=== PATIENT | male | born 1940 | race Caucasian/White ===

== ENCOUNTER 2017-06-10 19:40 | Emergency (ER) | payer MEDICARE, BC ==
[2017-06-10] MEDS ORDERED: NS 0.9% 1000 ML* 2,000 ML IV ONE (22:41)
[2017-06-10] MEDS ORDERED: Acetaminophen TAB* 325 MG PO ONE (22:41)
[2017-06-10 23:22] LABS: Hematocrit 44 % (42-52); Mean Corpuscular HGB Conc 34 g/dl (31-36); Mean Corpuscular Hemoglobin 30 pg (27-31); Mean Corpuscular Volume 87 fL (80-94); Mean Platelet Volume 9 um3 (7.4-10.4); Red Blood Count 5.02 10^6/ul (4.0-5.4); Red Cell Distribution Width 14 % (10.5-15); White Blood Count 10.4 10^3/ul (3.5-10.8)
[2017-06-10 23:40] LABS: ALT 23 U/L (7-52); AST 14 U/L (13-39); Albumin 4.1 g/dL (3.2-5.2); Alkaline Phosphatase 53 U/L (34-104); Anion Gap 10 mmol/L (2-11); BUN/Creatinine Ratio 21.7 (8-20); Blood Urea Nitrogen 23 mg/dL (6-24); C Reactive Protein 117.59 mg/L (< 5.00); CO2 Carbon Dioxide 20 mmol/L (22-32); Calcium 9.3 mg/dL (8.6-10.3); Chloride 106 mmol/L (101-111); EGFR African American 87.8 (>60); EGFR Non-African American 68.3 (>60); Globulin 3.4 g/dL (2-4); Glucose 166 mg/dL (70-100); Lipase < 10 U/L (11.0-82.0); Sodium 136 mmol/L (133-145); Total Protein 7.5 g/dL (6.4-8.9)
[2017-06-11] MEDS ORDERED: Meropenem 1 GM PREMIX(*) 1 GM/50 ML BAG IV ONE (01:19)
--- NOTE | 2017-06-11 04:33 | ED ---
Bessie Gamboa Alfonso, scribed for Benitez Knapp MD on 06/11/17 at 0118 . HPI Febrile Illness - HPI Summary HPI Summary: This patient is a 76 year old M presenting to [facility] accompanied by with a chief complaint of febrile illness since 4 days ago. He reports a 103.1 rectal temperature taken earlier today. The patient rates the pain 0/10 in severity. Symptoms aggravated by nothing. Symptoms alleviated by nothing. Patient reports body aches, and low back pain. Patient denies rhinorrhea, sore throat, SOB, right hip pain, rashes, and calf swelling. He is currently on doxycycline, and Dr. Lemus (PCP) recommends a Carbapenem. 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 PSHx right hip replacement (one year ago). - History of Current Complaint Chief Complaint: EDFever Time Seen by Provider: 06/10/17 22:27 Hx Obtained From: Patient Onset/Duration: Started Days Ago - 4 Timing: Constant Pain Intensity: 0 Pain Scale Used: 0-10 Numeric Aggravating Factors: Nothing Alleviating Factors: Nothing Associated Signs and Symptoms: Other: - body aches, and low back pain. Patient denies rhinorrhea, sore throat, SOB, right hip pain, rashes, and calf swelling - Allergy/Home Medications Allergies/Adverse Reactions: Allergies Allergy/AdvReac Type Severity Reaction Status Date / Time Iodine Allergy Intermediate Airway Verified 06/10/17 19:53 Obstruction Latex Allergy Unknown See Comment Verified 06/10/17 19:53 Bacitracin Allergy Unknown Verified 06/10/17 19:53 Reaction Details adhesive tape Allergy Mild Itching Uncoded 06/10/17 19:53 iv contrast dye Allergy Itching/gag Uncoded 06/10/17 19:53 ging PMH/Surg Hx/FS Hx/Imm Hx Endocrine/Hematology History: Denies: Hx Anticoagulant Therapy, Hx Blood Disorders, Hx Blood Transfusions, Hx Bone Marrow Disease, Hx Diabetes, Hx Systemic Lupus Erythematosus, Hx Sickle Cell Disease, Hx Thyroid Disease, Hx Anemia, Hx Unexplained Bleeding, Other Endocrine/Hematological Disorders Cardiovascular History: Denies: Hx Congestive Heart Failure, Hx Hypertension Comment Only: Other Cardiovascular Problems/Disorders - DENIES Respiratory History: Denies: Hx Asthma, Hx Chronic Obstructive Pulmonary Disease (COPD), Other Respiratory Problems/Disorders - DENIES GI History: Reports: Hx Gastroesophageal Reflux Disease, Other GI Disorders - POLYPS FOUND BY COLONOSCOPY, BOWEL OBSTRUCTION Denies: Hx Ulcer History: Reports: Hx Renal Disease - hx of hydronephrosis, Other Problems/ Disorders - congenital defect, multiple Surgeries, chronic e-coli infections KIDNEYS Denies: Hx Dialysis Musculoskeletal History: Reports: Hx Arthritis Denies: Hx Rheumatoid Arthritis, Hx Osteoporosis Sensory History: Reports: Hx Contacts or Glasses Denies: Hx Cataracts, Hx Eye Injury, Hx Eye Prosthesis, Hx Glaucoma, Hx Macular Degeneration, Hx Vision Problem, Hx Deafness, Hx Hearing Aid, Hx Hearing Problem, Other Sensory Impairments Opthamlomology History: Reports: Hx Contacts or Glasses Denies: Hx Cataracts, Hx Eye Injury, Hx Eye Prosthesis, Hx Glaucoma, Hx Macular Degeneration, Hx Vision Problem, Other Sensory Impairments Psychiatric History: Denies: Hx Anxiety, Hx Attention Deficit Hyperactivity Disorder, Hx Eating Disorder, Hx Depression, Hx Panic Disorder, Hx Post Traumatic Stress Disorder, Hx Inpatient Treatment, Hx Community Mental Health Tx, Hx Schizophrenia, Hx Bipolar Disorder, Hx Suicide Attempt, Hx Substance Abuse, Other Psychiatric Issues/Disorders - Cancer History Cancer Type, 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 Hx Chemotherapy: No Hx Radiation Therapy: No - Surgical History Surgery Procedure, Year, and Place: bladder removed, KOCK placement, hernia repair, right hip prosthesis Hx Anesthesia Reactions: No Infectious Disease History: No Infectious Disease History: Reports: History Other Infectious Disease - HX OF E COLI, SCARLATINA, Denies: Hx Hepatitis, Hx Human Immunodeficiency Virus (HIV), Traveled Outside the [place] in Last 30 Days - Family History Known Family History: Negative: Cardiac Disease, Diabetes - Social History Alcohol Use: Rare Substance Use Type: Reports: None Smoking Status (MU): Never Smoked Tobacco Review of Systems Positive: Fever Negative: Sore Throat, Nasal Discharge Negative: Shortness Of Breath Positive: Myalgia, Other - low back pain; negative right hip pain and calf swelling Negative: Rash All Other Systems Reviewed And Are Negative: Yes Physical Exam - Summary Physical Exam Summary: General: mildly ill-appearing, no pain distress Skin: warm, color reflects adequate perfusion, dry, no rash. Head: normal Eyes: EOMI, MARITZA ENT: normal Neck: supple, nontender Respiratory: CTA, breath sounds present Cardiovascular: Tachycardia. Regular rate. Abdomen: soft, nontender Bowel: present Musculoskeletal: normal, strength/ROM intact Neurological: normal, sensory/motor intact, A&O x3 Psychological: affect/mood appropriate Triage Information Reviewed: Yes Vital Signs On Initial Exam: Initial Vitals Temp Pulse Resp BP Pulse Ox 101.8 F 108 18 133/88 96 06/10/17 19:46 06/10/17 19:46 06/10/17 19:46 06/10/17 19:46 06/10/17 19:46 Vital Signs Reviewed: Yes - Sandy Coma Scale Coma Scale Total: 15 Diagnostics - Vital Signs Vital Signs Temp Pulse Resp BP Pulse Ox 06/11/17 00:23 90 130/66 96 06/11/17 00:22 89 97 06/10/17 19:46 101.8 F 108 18 133/88 96 - Laboratory Lab Results: Lab Results 06/10/17 06/10/17 06/10/17 Range/Units 22:58 22:58 22:58 WBC (3.5-10.8) 10^3/ul RBC (4.0-5.4) 10^6/ul Hgb (14.0-18.0) g/dl Hct (42-52) % MCV (80-94) fL MCH (27-31) pg MCHC (31-36) g/dl RDW (10.5-15) % Plt Count (150-450) 10^3/ul MPV (7.4-10.4) um3 Neut % (Auto) (38-83) % Lymph % (Auto) (25-47) % Kings[place] % (Auto) (1-9) % Eos % (Auto) (0-6) % Baso % (Auto) (0-2) % Absolute Neuts (auto) (1.5-7.7) 10^3/ul Absolute Lymphs (auto) (1.0-4.8) 10^3/ul Absolute Monos (auto) (0-0.8) 10^3/ul Absolute Eos (auto) (0-0.6) 10^3/ul Absolute Basos (auto) (0-0.2) 10^3/ul Absolute Nucleated RBC 10^3/ul Nucleated RBC % INR (Anticoag Therapy) 1.04 (0.89-1.11) APTT 27.5 (26.0-36.3) seconds Sodium 136 (133-145) mmol/L Potassium 4.0 (3.5-5.0) mmol/L Chloride 106 (101-111) mmol/L Carbon Dioxide 20 L (22-32) mmol/L Anion Gap 10 (2-11) mmol/L BUN 23 (6-24) mg/dL Creatinine 1.06 (0.67-1.17) mg/dL Est GFR ( Amer) 87.8 (>60) Est GFR (Non-Af Amer) 68.3 (>60) BUN/Creatinine Ratio 21.7 H (8-20) Glucose 166 H (70-100) mg/dL Lactic Acid (0.5-2.0) mmol/L Calcium 9.3 (8.6-10.3) mg/dL Total Bilirubin 1.00 (0.2-1.0) mg/dL AST 14 (13-39) U/L ALT 23 (7-52) U/L Alkaline Phosphatase 53 (34-104) U/L C-Reactive Protein 117.59 H (< 5.00) mg/L B-Natriuretic Peptide 26 ( - 100) pg/mL Total Protein 7.5 (6.4-8.9) g/dL Albumin 4.1 (3.2-5.2) g/dL Globulin 3.4 (2-4) g/dL Albumin/Globulin Ratio 1.2 (1-3) Lipase < 10 L (11.0-82.0) U/L Influenza A (Rapid) (Negative) Influenza B (Rapid) (Negative) 06/10/17 06/10/17 06/10/17 Range/Units 22:58 22:58 23:25 WBC 10.4 (3.5-10.8) 10^3/ul RBC 5.02 (4.0-5.4) 10^6/ul Hgb 15.0 (14.0-18.0) g/dl Hct 44 (42-52) % MCV 87 (80-94) fL MCH 30 (27-31) pg MCHC 34 (31-36) g/dl RDW 14 (10.5-15) % Plt Count 177 (150-450) 10^3/ul MPV 9 (7.4-10.4) um3 Neut % (Auto) 84.0 H (38-83) % Lymph % (Auto) 7.1 L (25-47) % Kingsbury % (Auto) 8.6 (1-9) % Eos % (Auto) 0.1 (0-6) % Baso % (Auto) 0.2 (0-2) % Absolute Neuts (auto) 8.7 H (1.5-7.7) 10^3/ul Absolute Lymphs (auto) 0.7 L (1.0-4.8) 10^3/ul Absolute Monos (auto) 0.9 H (0-0.8) 10^3/ul Absolute Eos (auto) 0 (0-0.6) 10^3/ul Absolute Basos (auto) 0 (0-0.2) 10^3/ul Absolute Nucleated RBC 0.01 10^3/ul Nucleated RBC % 0.1 INR (Anticoag Therapy) (0.89-1.11) APTT (26.0-36.3) seconds Sodium (133-145) mmol/L Potassium (3.5-5.0) mmol/L Chloride (101-111) mmol/L Carbon Dioxide (22-32) mmol/L Anion Gap (2-11) mmol/L BUN (6-24) mg/dL Creatinine (0.67-1.17) mg/dL Est GFR ( Amer) (>60) Est GFR (Non-Af Amer) (>60) BUN/Creatinine Ratio (8-20) Glucose (70-100) mg/dL Lactic Acid 2.1 H* (0.5-2.0) mmol/L Calcium (8.6-10.3) mg/dL Total Bilirubin (0.2-1.0) mg/dL AST (13-39) U/L ALT (7-52) U/L Alkaline Phosphatase (34-104) U/L C-Reactive Protein (< 5.00) mg/L B-Natriuretic Peptide ( - 100) pg/mL Total Protein (6.4-8.9) g/dL Albumin (3.2-5.2) g/dL Globulin (2-4) g/dL Albumin/Globulin Ratio (1-3) Lipase (11.0-82.0) U/L Influenza A (Rapid) Negative (Negative) Influenza B (Rapid) Negative (Negative) Result Diagrams: 06/10/17 22:58 09/26/17 22:58 Lab Statement: Any lab studies that have been ordered have been reviewed, and results considered in the medical decision making process. - Radiology CXR Radiology Interpretation Completed By: ED Physician - LUNA - EKG 0016 Cardiac Rate: NL - BPM 90 EKG Rhythm: Sinus Rhythm Ectopy: None EKG Comparison: Other - 07/11/2012 new artifact in interior leads Re-Evaluation - Re-Evaluation First Eval Re-Evaluation Time: 01:11 Comment: Reviewed lab results. Course/Dx - Course Course Of Treatment: THE PATIENT'S FEVER PROTOCOL IS TO SEARCH FOR SOURCE OF INFECTION TO INCLUDE BLOOD CULTURES, GIVE A CARBAPENEM UNTIL CULTURES RETURN. GIVEN MERIPENEM AT 2AM IN THE ED. NEXT DOSE DUE AT 10AM. THE PLAN IS FOR THE PATIENT TO CONTACT DR YADAV, HIS PMD, THIS AM TO HELP ARRANGE OUT PATIENT INFUSION CLINIC DAILY DOSING OF ERTAPENEM 1 GRAM DAILY UNTIL CX RETURN. THEN TREAT BASES ON SX AND CULTURES. AT THIS TIME, PATIENT FEELS COMFORTABLE WITH THIS PLAN AND OUT PATIENT F/U WITH HIS DOCTOR. WE DISCUSSED ADMISSION; THE PATIENT DID NOT FEEL HE NEEDED ADMISSION AT THIS TIME. HE WILL RETURN IF WORSE. NO CRITICAL CARE TIME. - Diagnoses Provider Diagnoses: Fever Discharge - Discharge Plan Condition: Stable Disposition: HOME Patient Education Materials: Fever in Adults (ED) Referrals: stephanie Lemus [Other] - 3 Days (FAX: [phone]) Orlando Yadav MD [Primary Care Provider] - Additional Instructions: FOLLOW UP WITH YOUR DOCTOR. CALL DR YADAV THIS MORNING FOR FOLLOW UP. DISCUSS GETTING ERTAPENEM 1 GRAM DAILY WITH THE INFUSION CLINIC UNTIL YOUR BLOOD CULTURES ARE BACK. RETURN TO THE EMERGENCY DEPARTMENT FOR ANY WORSENING OF YOUR CONDITION; YOU FEEL ILL, CONTINUED OR WORSE FEVER OR QUESTIONS OR CONCERNS. The documentation as recorded by the Bessie haji Alfonso accurately reflects the service I personally performed and the decisions made by me, Benitez Knapp MD.
[2017-06-11 05:23] VITALS: BP 123/78
--- NOTE | 2017-06-11 07:38 | RAD ---
HISTORY: Fever COMPARISONS: December 12, 2014 VIEWS: 1: frontal portable view of the chest at 10:43 PM FINDINGS: LINES AND TUBES: None. CARDIOMEDIASTINAL SILHOUETTE: The cardiomediastinal silhouette is normal for portable technique. PLEURA: The costophrenic angles are sharp. No pleural abnormalities are noted. LUNG PARENCHYMA: The lungs are clear. ABDOMEN: The upper abdomen is clear. There is no subphrenic gas. BONES AND SOFT TISSUES: Degenerative changes are noted of the right shoulder IMPRESSION: NO ACTIVE CARDIOPULMONARY DISEASE.
== END 2017-06-11 05:24 | disposition home or self-care (01) ==
LOC: ED 19:40
DX: R50.9 Fever, unspecified (principal); M19.90 Unspecified osteoarthritis, unspecified site; K21.9 Gastro-esophageal reflux disease without esophagitis; Z93.2 Ileostomy status
CPT/HCPCS: 36415; 71010; 80053; 83605; 83690; 83880; 85025; 85610; 85730; 86140; 87040; 87502; 93005; 96360; 96374; 99284; A9270-GY; J2185

== ENCOUNTER 2018-11-18 19:33 | Inpatient (IN) | payer MEDICARE, BC ==
[2018-11-18] MEDS ORDERED: Acetaminophen TAB* 325 MG PO ONE (20:30)
[2018-11-18] MEDS ORDERED: NS 0.9% 1000 ML** 2,000 ML IV ONE (20:30)
--- NOTE | 2018-11-18 20:30 | ED ---
HPI Febrile Illness - HPI Summary HPI Summary: This patient is a 77 year old M presenting to [facility] accompanied by with a chief complaint of fever (max of 102.8 at 1800) that began yesterday at 2300. The patient rates the pain 0/10 in severity. Symptoms aggravated by nothing. Symptoms alleviated by nothing. Patient denies back pain. Patient states he has a history of bladder/ureteral issues and urosepsis. Patient states he does not kidney infections often, and had surgery on his ureters in 1986. - History of Current Complaint Chief Complaint: EDFever Time Seen by Provider: 11/18/18 20:14 Hx Obtained From: Patient Onset/Duration: Started Days Ago, Atraumatic, Still Present Timing: Constant Initial Severity: Mild Current Severity: Mild Pain Intensity: 0 Pain Scale Used: 0-10 Numeric Aggravating Factors: Nothing Alleviating Factors: Nothing Associated Signs and Symptoms: Other: - Negative back pain - Allergy/Home Medications Allergies/Adverse Reactions: Allergies Allergy/AdvReac Type Severity Reaction Status Date / Time MS Iodine [Iodine] Allergy Intermediate Airway Verified 11/18/18 19:46 Obstruction MS Latex [Latex] Allergy Unknown See Comment Verified 11/18/18 19:46 MS Bacitracin [Bacitracin] Allergy Unknown Verified 11/18/18 19:46 Reaction Details adhesive tape Allergy Mild Itching Uncoded 11/18/18 19:46 iv contrast dye Allergy Itching/gag Uncoded 11/18/18 19:46 ging PMH/Surg Hx/FS Hx/Imm Hx Previously Healthy: No Endocrine/Hematology History: Denies: Hx Anticoagulant Therapy, Hx Blood Disorders, Hx Blood Transfusions, Hx Bone Marrow Disease, Hx Diabetes, Hx Systemic Lupus Erythematosus, Hx Sickle Cell Disease, Hx Thyroid Disease, Hx Anemia, Hx Unexplained Bleeding, Other Endocrine/Hematological Disorders Cardiovascular History: Denies: Hx Congestive Heart Failure, Hx Hypertension Comment Only: Other Cardiovascular Problems/Disorders - DENIES Respiratory History: Denies: Hx Asthma, Hx Chronic Obstructive Pulmonary Disease (COPD), Other Respiratory Problems/Disorders - DENIES GI History: Reports: Hx Gastroesophageal Reflux Disease, Other GI Disorders - POLYPS FOUND BY COLONOSCOPY, BOWEL OBSTRUCTION Denies: Hx Ulcer History: Reports: Hx Renal Disease - hx of hydronephrosis, Other Problems/ Disorders - congenital defect, multiple Surgeries, chronic e-coli infections KIDNEYS Denies: Hx Dialysis Musculoskeletal History: Reports: Hx Arthritis Denies: Hx Rheumatoid Arthritis, Hx Osteoporosis Sensory History: Reports: Hx Contacts or Glasses Denies: Hx Cataracts, Hx Eye Injury, Hx Eye Prosthesis, Hx Glaucoma, Hx Macular Degeneration, Hx Vision Problem, Hx Deafness, Hx Hearing Aid, Hx Hearing Problem, Other Sensory Impairments Opthamlomology History: Reports: Hx Contacts or Glasses Denies: Hx Cataracts, Hx Eye Injury, Hx Eye Prosthesis, Hx Glaucoma, Hx Macular Degeneration, Hx Vision Problem, Other Sensory Impairments Psychiatric History: Denies: Hx Anxiety, Hx Attention Deficit Hyperactivity Disorder, Hx Eating Disorder, Hx Depression, Hx Panic Disorder, Hx Post Traumatic Stress Disorder, Hx Inpatient Treatment, Hx Community Mental Health Tx, Hx Schizophrenia, Hx Bipolar Disorder, Hx Suicide Attempt, Hx Substance Abuse, Other Psychiatric Issues/Disorders - Cancer History Cancer Type, 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 Hx Chemotherapy: No Hx Radiation Therapy: No - Surgical History Surgery Procedure, Year, and Place: bladder removed, KOCK placement, hernia repair, right hip prosthesis Hx Anesthesia Reactions: No Infectious Disease History: No Infectious Disease History: Reports: History Other Infectious Disease - HX OF E COLI, SCARLATINA, Denies: Hx Hepatitis, Hx Human Immunodeficiency Virus (HIV), Traveled Outside the [place] in Last 30 Days - Family History Known Family History: Negative: Cardiac Disease, Diabetes - Social History Occupation: Retired Lives: With Family Alcohol Use: None Hx Substance Use: No Substance Use Type: Reports: None Hx Tobacco Use: No Smoking Status (MU): Never Smoked Tobacco Review of Systems Positive: Fever Positive: Other - Negative back pain All Other Systems Reviewed And Are Negative: Yes Physical Exam - Summary Physical Exam Summary: VITAL SIGNS: Reviewed. GENERAL: Patient is a well-developed and nourished male who is lying comfortable in the stretcher. Patient is not in any acute respiratory distress. HEAD AND FACE: No signs of trauma. No ecchymosis, hematomas or skull depressions. No sinus tenderness. EYES: PERRLA, EOMI x 2, No injected conjunctiva, no nystagmus. EARS: Hearing grossly intact. Ear canals and tympanic membranes are within normal limits. MOUTH: Oropharynx within normal limits. NECK: Supple, trachea is midline, no adenopathy, no JVD, no carotid bruit, no c- spine tenderness, neck with full ROM. CHEST: Symmetric, no tenderness at palpation LUNGS: Clear to auscultation bilaterally. No wheezing or crackles. CVS: Regular rhythm, tachycardia, S1 and S2 present, no murmurs or gallops appreciated. ABDOMEN: Soft, non-tender. No signs of distention. No rebound no guarding, and no masses palpated. Bowel sounds are normal. EXTREMITIES: FROM in all major joints, no edema, no cyanosis or clubbing. NEURO: Alert and oriented x 3. No acute neurological deficits. Speech is normal and follows commands. SKIN: Dry and warm Triage Information Reviewed: Yes Vital Signs On Initial Exam: Initial Vitals Temp Pulse Resp BP Pulse Ox 100.7 F 112 16 142/88 95 11/18/18 19:40 11/18/18 19:40 11/18/18 19:40 11/18/18 19:40 11/18/18 19:40 Vital Signs Reviewed: Yes Diagnostics - Vital Signs Vital Signs Temp Pulse Resp BP Pulse Ox 11/18/18 19:40 100.7 F 112 16 142/88 95 - Laboratory Result Diagrams: 11/18/18 20:47 11/18/18 20:47 Lab Statement: Any lab studies that have been ordered have been reviewed, and results considered in the medical decision making process. - Radiology CXR Radiology Interpretation Completed By: ED Physician - Dr. Gao, pending official report Summary of Radiographic Findings: negative CXR - CT CT Abd/Pelvis CT Interpretation Completed By: Radiologist Summary of CT Findings: IMPRESSION: 1. No CT findings to correlate with patient 's symptomatology. 2. Mild persistent bilateral vesicoureteral reflux due to ileal conduit. anastomosis. 3. Diverticulosis coli. 4. Simple hepatic cyst. No followup indicated. Dr. Gao has reviewed this report. Course/Dx - Course Course Of Treatment: This patient is a 77 year old M presenting to [facility] accompanied by with a chief complaint of fever (max of 102.8 at 1800) that began yesterday at 2300. Physical Exam Findings: Tachycardia. CT Abd/Pelvis reveals, per radiologist, 1. No CT findings to correlate with patient's symptomatology. 2. Mild persistent bilateral vesicoureteral reflux due to ileal conduit anastomosis. 3. Diverticulosis coli. 4. Simple hepatic cyst. No followup indicated. ED physician has reviewed this report. Per ED physician, CXR is negative. Bloodwork obtained. In the ED course the patient was given fluids, acetaminophen, and Merrem. Consult with Dr. Santiago (hospitalist) at 2041. She agrees to admit the patient for further evaluation. The patient is agreeable with this plan. - Diagnoses Provider Diagnoses: Pyelonephritis - Provider Notifications Discussed Care Of Patient With: Deepika Santiago Time Discussed With Above Provider: 20:42 Instructed by Provider To: Other - Consult with Dr. Santiago (hospitalist) at 2041. She agrees to admit the patient for further evaluation. Discharge - Sign-Out/Discharge Documenting (check all that apply): Patient Departure - Admit to [facility] Patient Received Moderate/Deep Sedation with Procedure: No - Discharge Plan Condition: Stable Disposition: ADMITTED TO [facility] Referrals: Orlando Yadav MD [Primary Care Provider] - - Attestation Statements Document Initiated by Scribe: Yes Documenting Scribe: Talita Severino Provider For Whom Scribe is Documenting (Include Credential): Dr. Karen Gao MD Scribe Attestation: I, Talita Severino, scribed for Dr. Karen Gao MD on 11/18/18 at 6711. Status of Scribe Document: Ready
[2018-11-18] MEDS ORDERED: Meropenem 1 GM PREMIX(*) 1 GM/50 ML BAG IV ONE (21:00)
[2018-11-18 21:04] LABS: ABS Basophils 0 10^3/ul (0-0.2); ABS Eosinophils 0 10^3/ul (0-0.6); ABS Lymphocytes 0.8 10^3/ul (1.0-4.8); ABS Monocytes 1.2 10^3/ul (0-0.8); ABS Neutrophils 7.8 10^3/ul (1.5-7.7); ABS Nucleated RBC 0 10^3/ul; Eosinophil % 0.1 %; Hematocrit 39 % (42-52); Hemoglobin 13.4 g/dl (14.0-18.0); Lymphocyte % 8.4 %; Mean Corpuscular HGB Conc 35 g/dl (31-36); Mean Corpuscular Hemoglobin 30 pg (27-31); Mean Corpuscular Volume 87 fL (80-94); Mean Platelet Volume 8.2 fL (7.4-10.4); Nucleated Red Blood Cells % 0; Platelet Count 195 10^3/ul (150-450); Red Blood Count 4.43 10^6/ul (4.00-5.40); Red Cell Distribution Width 14 % (10.5-15); White Blood Count 9.8 10^3/ul (3.5-10.8)
[2018-11-18] MEDS: Meropenem 1 GM PREMIX(*) 1 GM/50 ML BAG IV SCH (21:12)
[2018-11-18 21:15] LABS: Activated Partial Thrombo Time 28.6 seconds (26.0-36.3); INR 1.06 (0.77-1.02)
[2018-11-18 21:28] LABS: Albumin 4.2 g/dL (3.2-5.2); Albumin/Globulin Ratio 1.6 (1-3); BUN/Creatinine Ratio 23.3 (8-20); C Reactive Protein 41.21 mg/L (<8.01); Calcium 9.2 mg/dL (8.6-10.3); EGFR African American 74.3 (>60); EGFR Non-African American 61.4 (>60); Globulin 2.6 g/dL (2-4); Potassium 4.3 mmol/L (3.5-5.0); Total Protein 6.8 g/dL (6.4-8.9)
[2018-11-18 21:40] LABS: Influenza A Molecular NEGATIVE (Negative); Influenza B Molecular NEGATIVE (Negative)
[2018-11-18] MEDS ORDERED: Ondansetron INJ* 2 MG/ML VIAL IV PRN (22:31)
[2018-11-18] MEDS ORDERED: Acetaminophen TAB* 325 MG PO PRN (22:31)
[2018-11-19] MEDS: NS 0.9% 1000 ML** 1,000 ML IV SCH ×2 (00:54→11:04)
--- NOTE | 2018-11-19 03:58 | HP ---
CC: Dr. Orlando Yadav; Dr. Ander Coe * HISTORY AND PHYSICAL: DATE OF ADMISSION: 11/18/18 PRIMARY CARE PROVIDER: Dr. Orlando Yadav. ATTENDING PHYSICIAN: Dr. Deepika Santiago * (dictated by Kirsten Perez NP). CHIEF COMPLAINT: Fever. HISTORY OF PRESENT ILLNESS: Mr. Porter is a 77-year-old male with past medical history significant for a congenital bladder exstrophy; status post bladder repair and ileoanal diversion, and multiple urinary tract infections who presented today with complaints of a fever. The patient reports that around 2300 last night he developed a fever of 100.2; at that point, he felt general malaise and felt slightly sluggish. He took some Tylenol and went to bed. This morning, he had a low-grade fever around 99, though around 5 p.m. today spiked a temp of 102.7. At that point, he and his presented to the emergency room. The patient does have a past medical history which is a complex past medical history related to his system. He had a congenital bladder exstrophy at and a congenital epispadias and has had multiple surgeries in the past. Ultimately, he had an ileoanal diversion after a prior ureteral sigmoid diversion failed. He has had many abdominal surgeries related to his bladder as well as hernia repair and laparoscopic surgery for small- bowel obstruction. The patient does get frequent UTIs. He has been on prophylactic antibiotics very often in recent years. He reports that most recently he was on Augmentin for approximately 1-1/2 years. He stopped the Augmentin in July under the direction of his infectious disease doctor and urologist in [facility]. He has had no urinary problems since then and no evidence of fever. I will note that we are unable to obtain a urine sample due to this ileoanal diversion. In the emergency room, the patient was noted to have a temp of 100.7. He was noted to be tachycardic. He had lab work, which was essentially unremarkable, and an abdomen and pelvis CT, which did not show any acute findings. Because of the concern for urinary tract infection and the patient's compromised system, the hospitalist service was asked to evaluate for admission. PAST MEDICAL HISTORY: 1. Osteoarthritis. 2. Congenital bladder exstrophy. 3. Congenital epispadias. 4. History of ESBL E. coli sepsis in 2011 and multiple suspected urinary tract infections thereafter. 5. GERD. PAST SURGICAL HISTORY: 1. Bladder repair and ureteral sigmoid diversion, ultimately resulting in a pouch creation and ileoanal diversion. 2. Tonsillectomy. 3. Left lower quadrant sarcoma excision. 4. Mesenteric hernia repair with mesh placement in the left lower quadrant. 5. Appendectomy. 6. Laparoscopic surgery for bowel obstruction. 7. Right total hip arthroplasty. HOME MEDICATIONS: 1. Calcium 600+D 1 tab p.o. daily. 2. Sodium bicarbonate 1 tab p.o. b.i.d. ALLERGIES: IODINE, LATEX, BACITRACIN, IV CONTRAST. FAMILY HISTORY: The patient's mother at the age of 92, presumably from natural causes. His father at the age of 85 due to an [place]. SOCIAL HISTORY: The patient denies any tobacco, alcohol, or recreational drug use. 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 REVIEW OF SYSTEMS: An 11-point review of systems was performed and all the pertinent positive and negative findings are in the HPI. All other systems are negative. PHYSICAL EXAMINATION GENERAL: Mr. Porter is a well-developed, well-nourished elderly white male, sitting up in bed, in no acute distress. He appears his stated age. VITAL SIGNS: Temp 99.5, heart rate 91, respiratory rate 18, oxygen saturation 96 % on room air, blood pressure 144/77. HEENT: Head is atraumatic, normocephalic. Visual quintero are grossly intact. Pupils equal, round, and reactive to light and accommodation. Oral mucous membranes moist and without lesions. NECK: Full range of motion. Thyroid not palpable. Trachea at midline. No lymphadenopathy. RESPIRATORY: Symmetrical chest expansion. No chest wall deformities. Lungs clear to auscultation throughout. No rhonchi, wheezes, or rales. CARDIOVASCULAR: Regular rate and rhythm. S1, S2 present. No murmurs, rubs, or gallops. No JVD. ABDOMEN: Soft, nontender to palpation. There are multiple surgical scars. Bowel sounds are normoactive throughout. EXTREMITIES: Skin warm and smooth bilaterally. No edema. No clubbing or cyanosis. Pedal pulses 2+ bilaterally. NEUROLOGIC: Awake, alert, oriented x4. Cranial nerves II through XII are grossly intact. Moves all extremities. SKIN: Grossly intact without lesions. DIAGNOSTIC STUDIES/LAB DATA: WBC 9.8, RBC 4.43, hemoglobin 13.4, hematocrit 39 , platelets 195,000. INR 1.06. Sodium 138, potassium 4.3, chloride 108, carbon dioxide 24, BUN 27, creatinine 1.16, glucose 93, lactic acid 1.2. Troponin 0.00. CRP 41. Influenza A and B negative. Chest x-ray to my read shows no active cardiopulmonary disease. Abdomen and pelvis CT read as no CT findings to correlate with patient's symptomatology, mild persistent bilateral vesicoureteral reflux due to ileal conduit anastomosis. Diverticulosis coli. Simple hepatic cyst. No followup indicated. ASSESSMENT AND PLAN: Mr. Poretr is a 77-year-old male with past medical history of congenital bladder malformation with subsequent ileoanal diversion and a long history of urinary tract infections who presents to the emergency room today with complaints of fever and was found to be septic. The patient will be admitted to observation for: 1. Sepsis. The patient is meeting sepsis criteria with fever and tachycardia, suspected source of infection is urinary. I should note that it is not possible to obtain a urine sample from the patient due to his ileoanal diversion and his urine draining into his rectum. He was negative for influenza. Chest x-ray looks clear and there is no evidence for infection on his abdomen and pelvis CT. Blood cultures were drawn in the emergency room, though at this point because of the patient's history we will treat this as a urinary tract infection. The physician in the emergency room reportedly spoke with infectious disease and urology, who recommended placing the patient on meropenem. The patient did receive his first dose of meropenem in the emergency room and we will continue this every 8 hours. I have placed a consult for infectious disease, though I have not contacted Dr. Coe at this point as this case is not emergent, though he should see the patient tomorrow ideally. I will recheck labs in the morning and again, we will await results of blood cultures. The patient did receive an appropriate fluid bolus for his sepsis in the emergency room. I have ordered 2 additional bags of fluid. I will note that the patient normally takes sodium bicarb to help prevent any electrolyte disturbances due to his urinary diversion, so I will continue him on this. 2. FEN. Again, I have ordered the patient 2 additional bags of IV fluid. Electrolytes do not require any repletion at this point. I have ordered a regular diet. 3. Code status. The patient will be a full code. 4. DVT prophylaxis. According to the DVT Risk Assessment, the patient scores a 4, putting him at high risk. I have placed him on subcu heparin. TIME SPENT: Approximately 60 minutes were spent on this admission, greater than half of that time spent [id number] with the patient and his obtaining my history, performing my physical exam, and reviewing the plan of care. This case has been reviewed with my attending, Dr. Santiago, who is in agreement with the plan of care. KIRSTEN PEREZ NP [id number]/[facility] #: [id number] MARGE
[2018-11-19] MEDS: Meropenem 1 GM PREMIX(*) 1 GM/50 ML BAG IV SCH ×3 (06:00→20:45)
[2018-11-19] MEDS: Heparin VIAL(*) 5000 UNITS/ML VIAL (FIVE THOUSAND) SUBCUT SCH ×3 (06:06→20:47)
[2018-11-19 07:06] LABS: ABS Basophils 0 10^3/ul (0-0.2); ABS Eosinophils 0.1 10^3/ul (0-0.6); ABS Lymphocytes 0.9 10^3/ul (1.0-4.8); ABS Monocytes 1.2 10^3/ul (0-0.8); ABS Neutrophils 5.9 10^3/ul (1.5-7.7); ABS Nucleated RBC 0 10^3/ul; Hematocrit 35 % (42-52); Hemoglobin 11.8 g/dl (14.0-18.0); Lymphocyte % 11.1 %; Mean Corpuscular HGB Conc 34 g/dl (31-36); Mean Corpuscular Hemoglobin 30 pg (27-31); Mean Corpuscular Volume 88 fL (80-94); Mean Platelet Volume 8.1 fL (7.4-10.4); Nucleated Red Blood Cells % 0; Platelet Count 153 10^3/ul (150-450); Red Blood Count 3.98 10^6/ul (4.00-5.40); Red Cell Distribution Width 14 % (10.5-15); White Blood Count 8.2 10^3/ul (3.5-10.8)
[2018-11-19 07:19] LABS: BUN/Creatinine Ratio 25.6 (8-20); EGFR African American 110.8 (>60); EGFR Non-African American 91.6 (>60); Potassium 3.7 mmol/L (3.5-5.0)
[2018-11-19] MEDS: Sodium Bicarbonate (ANTACID)* 650 MG TAB PO SCH ×2 (08:46→20:46)
[2018-11-19] MEDS: Psyllium PAK PO SCH (09:24)
--- NOTE | 2018-11-19 14:10 | CONS ---
CC: Dr. Tiffany White; Dr. Orlando Yadav* CONSULTATION REPORT: DATE OF ADMISSION: 11/18/18 DATE OF CONSULTATION: 11/19/18 REQUESTING PROVIDER: Dr. Tiffany White. CONSULTING SERVICE: Infectious Disease. ATTENDING PHYSICIAN: Dr. Ander Coe* (dictated by Sydney Marshall NP). REASON FOR CONSULTATION: Fever and Gram-negative bacteremia. IMPRESSION: 1. 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 Mr. Porter reports fever of 102.2 on 11/17/18 and a temperature of 102.7 at home on 11/18/18. He has grown E. coli ESBL in the past. We are unable to obtain urine cultures as his pouch drains into his rectum. He has no focal signs or symptoms. He is improving on meropenem. There is Gram-negative bacilli in the anaerobic Gram stain. Further culture is pending at this time. He is also influenza A and B negative. He is currently afebrile. No leukocytosis. Normal renal function. CRP of 41.21. 2. History of bladder excision with an ileal pouch that drains into the rectum. 3. PENICILLIN and INTRAVENOUS CONTRAST allergy. RECOMMENDATIONS: Continue meropenem 1 g IV q.8 hours while we await preliminary results of the blood cultures. As long as he continues to improve and remains afebrile, we will plan for 2 to 3 weeks of ertapenem as an outpatient and then transition back to an oral suppressive agent. HISTORY OF PRESENT ILLNESS: Mr. Porter is a 74-year-old male with past medical history significant for congenital bladder exstrophy status post bladder repair and ileal pouch with history of multiple urinary tract infections with complaints of 1 day of intermittent fevers. He reports being on suppressive Augmentin for 1-1/2 years and states that he has had no breakthrough infections during that time, but his Infectious Disease doctor discontinued the Augmentin in July 2018. He initially developed 100.2 rectal temperature on 11/17/18. At that point, he had feeling of general malaise, just generally not feeling well. He continued to monitor his temperature at home and last evening his temperature spiked to 102.7. At that point, he contacted his Infectious Disease doctor in [facility], who recommended that he present to the emergency room for further workup. While in the emergency room, the patient was noted to have a temperature of 100.7 and tachycardic. He had lab work that was essentially unremarkable and abdomen and pelvis CT scan without acute findings. He had blood cultures drawn , influenza A and B that was negative. He is referred to the hospitalist service for admission. While in the hospital, he has received IV fluids and continued on meropenem. He has no leukocytosis this morning. He has blood cultures growing Gram- negative bacilli, suspected this is likely E. coli. PAST MEDICAL HISTORY: 1. Osteopenia. 2. Chronic colitis. 3. Congenital bladder exstrophy. 4. Congenital epispadias. 5. History of ESBL E. coli in 2011, multiple urinary tract infections thereafter. 6. GERD. PAST SURGICAL HISTORY: 1. Status post bladder repair and a ureterosigmoid diversion, ultimately resulting in a pouch creation and anal diversion. 2. Status post tonsillectomy. 3. Status post left lower quadrant sarcoma excision. 4. Status post mesenteric hernia repair with mesh placement in the left lower quadrant. 5. Status post appendectomy. 6. Status post laparoscopic surgery for bowel obstruction. 7. Status post left total hip arthroplasty. MEDICATIONS: Home medications include: 1. Calcium 600+D 1 tablet oral daily. 2. Sodium bicarbonate 1 tablet oral twice daily. Hospital medications include: 1. Acetaminophen 650 mg by mouth every 4 hours as needed for fever, pain. 2. Heparin 5000 units subcutaneous every 8 hours. 3. Meropenem 1 g IV every 8 hours. 4. Zofran 4 mg IV every 4 hours as needed for nausea. 5. Metamucil 1 pack by mouth daily. 6. Sodium bicarbonate 325 mg by mouth twice daily. 7. Sodium chloride 100 mL an hour. ALLERGIES: PENICILLIN, LATEX, BACITRACIN, IV CONTRAST, ADHESIVE TAPE. FAMILY HISTORY: The patient's mother at age 92, presumably from natural causes. His father at the age 85 from an [place]. SOCIAL HISTORY: He denies any tobacco, alcohol, or recreational drug use. 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 REVIEW OF SYSTEMS: I performed a 10-point review of systems. All the pertinent positives and negatives are mentioned in the history of present illness. Remaining review of systems are negative. He denies any recent travel. PHYSICAL EXAMINATION: Vital Signs: Temperature 98.0, heart rate 86, respiratory rate 16, O2 sat 96% on room air, blood pressure 139/76. General Appearance: He is alert, in no acute distress. HEENT: Pupils are equal, round , reactive to light without conjunctival hemorrhage. Neck is supple without nuchal rigidity. Neurological: Alert and oriented x4. Moves all extremities. Cardiovascular: Regular rate and rhythm. No murmurs, rubs, or gallops. Lungs: Clear to auscultation bilateral. Abdomen: Soft, nontender, and nondistended. There is no flank pain or tenderness with palpation. No rashes or abnormalities seen on the exposed skin. Musculoskeletal: There is no tenderness to his spine or joints. He is able to move all extremities. LABORATORY DATA: White blood cell count 8.2, hemoglobin 11.8, hematocrit 35, platelet count 153. CRP 41.21. Creatinine 0.82. Influenza A and B negative. Blood cultures growing Gram-negative bacilli in the anaerobic bottle. Please see the impression and recommendations as outlined above, which I discussed with Dr. White. Thank you for asking for this consultation. TIME SPENT: A total of 45 minutes was spent with this patient discussing past medical history, medications, events leading up to his arrival today, and performing a physical examination. The case has been reviewed with the attending, Dr. Coe, who agrees with the plan of care. Reviewed by PENNY HUSSEIN 11/19/18 1936 [id number]/[facility] #: [id number] MTDD
--- NOTE | 2018-11-19 14:54 | PN ---
Subjective Date of Service: 11/19/18 Interval History: pt feels well, denies pain. Bowel movement frequency id at baseline Q4H(usually stool mixed with urine) Objective Active Medications: Acetaminophen (Tylenol Tab*) 650 mg PO Q4H PRN PRN Reason: FEVER/PAIN Heparin Sodium (Porcine) (Heparin Vial(*)) 5,000 units SUBCUT Q8HR [facility] Last Admin: 11/19/18 13:07 Dose: Not Given Meropenem (Merrem 1 Gm Premix(*)) 1 gm in 50 mls @ 100 mls/hr IV Q8H [facility] Last Admin: 11/19/18 13:06 Dose: 100 mls/hr Ondansetron HCl (Zofran Inj*) 4 mg IV Q4H PRN PRN Reason: NAUSEA/VOMITING Psyllium Hydrophilic Mucilloid (Metamucil Aramis*) 1 pkt PO DAILY [facility] Last Admin: 11/19/18 09:24 Dose: 1 pkt Sodium Bicarbonate (Sodium Bicarbonate (Antacid)*) 325 mg PO BID [facility] Last Admin: 11/19/18 08:46 Dose: 325 mg Vital Signs - 8 hr 11/19/18 11/19/18 11/19/18 07:55 08:00 11:25 Temperature 98.2 F 98.0 F Pulse Rate 80 86 Respiratory 16 16 16 Rate Blood Pressure 131/72 139/76 (mmHg) O2 Sat by Pulse 96 96 Oximetry 11/19/18 13:38 Temperature 98.2 F Pulse Rate 91 Respiratory 18 Rate Blood Pressure 148/79 (mmHg) O2 Sat by Pulse 98 Oximetry Oxygen Devices in Use Now: None Appearance: 77 yo M in nAD, aAOx3 Eyes: No Scleral Icterus, PERRLA Ears/Nose/Mouth/Throat: NL Teeth, Lips, Gums, Mucous Membranes Moist Neck: NL Appearance and Movements; NL JVP, Trachea Midline Respiratory: Symmetrical Chest Expansion and Respiratory Effort Cardiovascular: NL Sounds; No Murmurs; No JVD, RRR Abdominal: NL Sounds; No Tenderness; No Distention, - - no flank tenderness b/l Lymphatic: No Cervical Adenopathy Extremities: No Edema, No Clubbing, Cyanosis Skin: No Rash or Ulcers, No Nodules or Sclerosis Neurological: Alert and Oriented x 3, NL Muscle Strength and Tone Result Diagrams: 11/19/18 06:40 11/19/18 06:40 Microbiology and Other Data: Microbiology 11/18/18 20:50 Anaerobic Blood Culture - Preliminary Blood Venous 11/18/18 21:17 Influenza Types A,B Antigen - Final Nasal Specimen received for Influenza A/B Molecular testing Assess/Plan/Problems-Billing Assessment: 77 yo M s/p ileoanal pouch formation for congenital bladder malformation with frequent pouchitis episodes presents with fever, blood cx positive for GNR. - Patient Problems (1) Fever Comment: with GNR bacteremia due to likley pouchitis. appreciate Dr. Coe's consult Cont [facility], awaiting blood cx sensitivities (2) DVT prophylaxis Comment: HSQ Status and Disposition: inpatient
[2018-11-20] MEDS: Meropenem 1 GM PREMIX(*) 1 GM/50 ML BAG IV SCH ×2 (05:44→12:28)
[2018-11-20] MEDS: Heparin VIAL(*) 5000 UNITS/ML VIAL (FIVE THOUSAND) SUBCUT SCH ×2 (05:47→12:27)
[2018-11-20 06:50] LABS: Hematocrit 36 % (42-52); Hemoglobin 11.9 g/dl (14.0-18.0); Mean Corpuscular HGB Conc 33 g/dl (31-36); Mean Corpuscular Hemoglobin 29 pg (27-31); Mean Corpuscular Volume 88 fL (80-94); Mean Platelet Volume 8.2 fL (7.4-10.4); Platelet Count 165 10^3/ul (150-450); Red Blood Count 4.07 10^6/ul (4.00-5.40); Red Cell Distribution Width 14 % (10.5-15); White Blood Count 8.4 10^3/ul (3.5-10.8)
[2018-11-20 07:08] LABS: BUN/Creatinine Ratio 24.4 (8-20); Calcium 8.5 mg/dL (8.6-10.3); EGFR African American 110.8 (>60); EGFR Non-African American 91.6 (>60); Potassium 4.1 mmol/L (3.5-5.0)
[2018-11-20] MEDS: Psyllium PAK PO SCH (08:36)
[2018-11-20] MEDS ORDERED: Sodium Bicarbonate (ANTACID)* 650 MG TAB PO SCH ×2 (09:00→11:12)
[2018-11-20 14:38] VITALS: BP 134/77
--- NOTE | 2018-11-20 15:52 | PN ---
Progress Note - Progress Note Date of Service: 11/20/18 SOAP: Subjective: CC: bacteremia HPI: 77 year old man with abnormal urinary tract, fever and malaise; GN bacteremia. Today he feels more like his usoh. No fever, rash, or diarrhea. Energy and appetite are improving. Objective: Vital Signs Temp 36.7 C 11/20/18 11:44 Pulse 81 11/20/18 11:44 Resp 18 11/20/18 11:44 BP 134/77 11/20/18 11:44 Pulse Ox 97 11/20/18 11:44 Intake & Output 11/19/18 11/20/18 11/20/18 18:59 06:59 18:59 Intake Total 1999 2995 2568 Output Total 0 Balance 1999 2995 2568 Intake: IV Fluids 1115 20 NS (0.9%) 1015 20 meropenum 100 IVPB 1000 50 meropenum 50 Oral 1999 880 2498 Output: Urine 0 Other: Estimated Void Medium # Bowel Movements 0 0 # Voids 3 Gen:awake, no distress HEENT: no thrush Heart:RRR no murmur Lungs:CTA BL Abd:+BS NTND soft no flank tenderness Skin: no rash MSK: no spine tenderness Laboratory Results - last 24 hr 11/20/18 11/20/18 06:40 06:40 WBC 8.4 RBC 4.07 Hgb 11.9 L Hct 36 L MCV 88 MCH 29 MCHC 33 RDW 14 Plt Count 165 MPV 8.2 Sodium 137 Potassium 4.1 Chloride 112 H Carbon Dioxide 19 L Anion Gap 6 BUN 20 Creatinine 0.82 Est GFR ( Amer) 110.8 Est GFR (Non-Af Amer) 91.6 BUN/Creatinine Ratio 24.4 H Glucose 121 H Calcium 8.5 L Microbiology 11/18/18 20:50 Aerobic Blood Culture - Preliminary Blood Venous No Growth Day 1 Anaerobic Blood Culture - Final Escherichia Coli 11/18/18 20:47 Aerobic Blood Culture - Preliminary Blood Venous No Growth Day 1 Anaerobic Blood Culture - Preliminary No Growth Day 1 Assessment: 1. Ec.helena bacteremia due to UTI 2. exophytic bladder s/p cystectomy and ureteral diversion 3. recurrent UTI Plan: 1. SHERIDAN meropenem, will use levaquin 500 mg PO daily to complete 14 day course; will communicate micro results to his ID Dr at [facility]. FU with me 1-2 week. 35 minutes floor time >50% face to face with patient and discussing antibiotic plans and fu issues
--- NOTE | 2018-11-20 22:15 | DS ---
CC: Dr. Yadav; Dr. Coe; Dr. Alyssa Lemus from [facility] in [facility], phone number [phone] * DISCHARGE SUMMARY: DATE OF ADMISSION: 11/18/18 DATE OF DISCHARGE: 11/20/18 PRIMARY CARE PROVIDER: Dr. Yadav. DISCHARGE DIAGNOSIS: Sepsis due to Escherichia coli bacteremia secondary to pouchitis. SECONDARY DIAGNOSES: 1. History of congenital bladder exstrophy, status post ileoanal diversion and pouch formation with multiple pouch infections in the past with multiresistant organisms. 2. History of extended-spectrum beta-lactamase Escherichia coli sepsis in 2011. 3. History of osteoarthritis. 4. History of gastroesophageal reflux disease. MEDICATIONS AT DISCHARGE: Include: 1. Levaquin 500 mg daily. 2. Sodium bicarbonate 650 mg daily. 3. Metamucil on p.r.n. basis. 4. Calcium carbonate with vitamin D 1 tablet daily. LABORATORY DATA AND STUDIES PERFORMED DURING THE HOSPITAL STAY: Included: On 11/20/18, white blood cell count of 8.4, hemoglobin 11.9, hematocrit of 36, and platelets of 165. Sodium was 137, potassium 4.1, chloride 112, carbon dioxide 19, BUN 20, creatinine 0.82. Influenza testing was unremarkable and negative. One out of two blood cultures obtained was positive for E. coli, resistant to Augmentin and ampicillin and cefazolin, intermediate resistant with ceftriaxone. It was sensitive to aztreonam, cefepime, ciprofloxacin, gentamicin , levofloxacin, meropenem, Zosyn, tetracycline, and Bactrim. CT of the abdomen and pelvis obtained on 11/18/18, impression: "No CT findings to correlate with the patient's symptomatology. Mild persistent bilateral vesicoureteral reflux due to the ileal conduit anastomosis. Diverticulosis coli. Simple hepatic cyst. No followup indicated." CONSULTATIONS DURING THE HOSPITAL STAY: Included Dr. Coe from Infectious Disease. HOSPITALIZATION COURSE: Debbie Porter is a 77-year-old male with history of congenital bladder abnormality and ileoanal pouch formation with multiple infections in the past due to that, who presented to the hospital complaining of fevers. The patient was treated with meropenem due to his history of multiple resistant organisms infections in the past. Dr. Coe saw the patient in consultation. The patient's blood cultures were positive for E. coli , sensitive to fluoroquinolones. After discussion with Dr. Coe, it was decided for the patient to be discharged home on 2 weeks worth of Levaquin at 500 mg daily. The patient is also planning to follow up with his infectious disease specialist at [facility], Dr. Alyssa Lemus. PHYSICAL EXAMINATION AT THE TIME OF DISCHARGE: Blood pressure of 134/77, heart rate of 81 and regular, respiratory rate 18, oxygen saturation 97% on room air, temperature 98.1. General: The patient is a very pleasant 77-year-old male who is in no acute distress. Alert, awake, and oriented x3. HEENT: Head: Atraumatic, normocephalic. Eyes: Pupils are equal, reactive to light and accommodation. Oropharynx is clear. Mucosa moist. Neck: Supple. No JVD. No bruits bilaterally. Cardiovascular: Regular rate and rhythm. No murmur. Respiratory: Clear to auscultation bilaterally. Abdomen: Soft, nontender. Bowel sounds are present in all 4 quadrants. Extremities: There is no edema. Pulses are +2 bilaterally. There is no clubbing or cyanosis. On evaluation of the back, there was no flank tenderness bilaterally. PLAN: The patient is being discharged home. Recommendation to follow up with his primary care provider in 4 to 7 days and his infectious disease specialist at [facility] in 1 to 2 weeks. Please note that this is a short summary of the patient's hospitalization. Please refer to further medical records for details. TIME SPENT: Approximately 35 minutes was spent on the patient's discharge. [id number]/[facility] #: [id number] [facility]
== END 2018-11-20 15:50 | disposition home or self-care (01) | DRG 393 ==
LOC: ED 19:33 → MED 22:31 → OBSVTOIN 11-19 14:55
PROVIDERS: ADMIT Pediatrics; ATTEND Internal Medicine
DX: K91.850 Pouchitis (principal); A41.51 Sepsis due to Escherichia coli [E. coli]; N12 Tubulo-interstitial nephritis, not specified as acute or chronic; M19.90 Unspecified osteoarthritis, unspecified site; K21.9 Gastro-esophageal reflux disease without esophagitis; K52.9 Noninfective gastroenteritis and colitis, unspecified; K57.30 Diverticulosis of large intestine without perforation or abscess without bleeding; K76.89 Other specified diseases of liver; Z96.642 Presence of left artificial hip joint; Y83.8 Other surgical procedures as the cause of abnormal reaction of the patient, or of later complication, without mention of misadventure at the time of the procedure; M85.80 Other specified disorders of bone density and structure, unspecified site; Z88.1 Allergy status to other antibiotic agents; Z91.040 Latex allergy status; Z86.010 Personal history of colon polyps; Z85.89 Personal history of malignant neoplasm of other organs and systems; Z88.0 Allergy status to penicillin; Z91.041 Radiographic dye allergy status; Z87.440 Personal history of urinary (tract) infections; Z90.89 Acquired absence of other organs; Z82.49 Family history of ischemic heart disease and other diseases of the circulatory system; Y92.9 Unspecified place or not applicable
CPT/HCPCS: 36415; 71045; 74176; 80048; 80053; 83605; 84484; 85025; 85027; 85610; 85730; 86140; 87040; 87077; 87186; 87205; 99284; A9270-GY; G0378; J1644; J2185

== ENCOUNTER 2021-01-30 15:40 | Observation (INO) ==
[2021-01-30 17:51] LABS: ABS Lymphocytes 0.3 10^3/ul (1.0-4.8); ABS Monocytes 0.5 10^3/ul (0-0.8); ABS Neutrophils 6.3 10^3/ul (1.5-7.7); Hematocrit 39 % (42-52); Hemoglobin 13.1 g/dL (14.0-18.0); Lymphocyte % 4.5 %; Mean Corpuscular HGB Conc 33 g/dL (31-36); Mean Corpuscular Hemoglobin 29 pg (27-31); Mean Corpuscular Volume 88 fL (80-94); Mean Platelet Volume 8.3 fL (7.4-10.4); Platelet Count 222 10^3/uL (150-450); Red Blood Count 4.49 10^6 /uL (4.18-5.48); Red Cell Distribution Width 14 % (10-15); White Blood Count 7.1 10^3/uL (3.5-10.8)
[2021-01-30 18:00] LABS: Activated Partial Thrombo Time 26.4 seconds (26.0-38.0); INR 1.17 (0.82-1.09)
[2021-01-30] MEDS ORDERED: NS 0.9% 1000 ml BAG 1,000 ML IV ONE (18:01)
[2021-01-30] MEDS ORDERED: Meropenem 1 GM PREMIX(*) 1 GM/50 ML BAG IV ONE (18:02)
[2021-01-30 18:16] LABS: Troponin I 0.01 ng/mL (<0.03)
[2021-01-30 18:17] LABS: Albumin/Globulin Ratio 1.5 (1-3); C Reactive Protein 81.99 mg/L (<8.01); EGFR African American 80.9 (>60); EGFR Non-African American 66.8 (>60); Globulin 2.6 g/dL (2-4); Magnesium 1.9 mg/dL (1.9-2.7); Potassium 4.2 mmol/L (3.5-5.0); Total Bilirubin 0.8 mg/dL (0.2-1.0); Total Protein 6.6 g/dL (6.4-8.9)
[2021-01-30] MEDS ORDERED: Ondansetron 4 mg VIAL 2 MG/ML 2 ml VIAL IV PRN (19:52)
[2021-01-30] MEDS ORDERED: NS 0.9% 1000 ml BAG 1,000 ML IV SCH (20:00)
[2021-01-30 21:03] LABS: Influenza A Molecular Negative (Negative); Influenza B Molecular Negative (Negative)
[2021-01-30] MEDS: Calcium/Vitamin D TAB 250/125 TAB PO SCH (23:19)
[2021-01-30] MEDS: Sodium Bicarb 650 mg (ANTACID) TAB PO SCH (23:19)
[2021-01-30] MEDS: Heparin 5000 UNITS/ML 1 mL VIAL SUBCUT SCH (23:20)
[2021-01-31] MEDS: Meropenem 1 GM PREMIX(*) 1 GM/50 ML BAG IV SCH ×3 (03:25→19:38)
[2021-01-31 03:33] LABS: Hematocrit 36 % (42-52); Hemoglobin 12.2 g/dL (14.0-18.0); Mean Corpuscular HGB Conc 34 g/dL (31-36); Mean Corpuscular Hemoglobin 30 pg (27-31); Mean Corpuscular Volume 88 fL (80-94); Mean Platelet Volume 7.9 fL (7.4-10.4); Platelet Count 180 10^3/uL (150-450); Red Cell Distribution Width 14 % (10-15); White Blood Count 4.6 10^3/uL (3.5-10.8)
[2021-01-31 03:43] LABS: INR 1.18 (0.82-1.09)
[2021-01-31 03:50] LABS: Calcium 8.5 mg/dL (8.6-10.3); EGFR African American 70.9 (>60); EGFR Non-African American 58.6 (>60); Potassium 4.1 mmol/L (3.5-5.0)
[2021-01-31 05:08] LABS: ABS Eosinophils 0.1 10^3/ul (0-0.6); ABS Lymphocytes 0.7 10^3/ul (1.0-4.8); ABS Monocytes 0.7 10^3/ul (0-0.8); ABS Neutrophils 3.1 10^3/ul (1.5-7.7); Eosinophil % 1.3 %; Lymphocyte % 14.3 %; Nucleated Red Blood Cells % 0.1
[2021-01-31] MEDS: Heparin 5000 UNITS/ML 1 mL VIAL SUBCUT SCH ×3 (05:52→21:07)
[2021-01-31] MEDS: Calcium/Vitamin D TAB 250/125 TAB PO SCH ×2 (09:09→19:49)
[2021-01-31] MEDS: Sodium Bicarb 650 mg (ANTACID) TAB PO SCH ×2 (09:10→19:48)
[2021-01-31] MEDS: Psyllium PAK PO SCH (09:11)
[2021-02-01] MEDS: Meropenem 1 GM PREMIX(*) 1 GM/50 ML BAG IV SCH ×2 (03:17→12:02)
[2021-02-01] MEDS: Heparin 5000 UNITS/ML 1 mL VIAL SUBCUT SCH ×2 (05:55→14:21)
[2021-02-01 06:24] LABS: ABS Eosinophils 0.1 10^3/ul (0-0.6); ABS Monocytes 0.8 10^3/ul (0-0.8); Eosinophil % 1.8 %; Hematocrit 38 % (42-52); Hemoglobin 12.9 g/dL (14.0-18.0); Lymphocyte % 17.2 %; Mean Corpuscular HGB Conc 34 g/dL (31-36); Mean Corpuscular Hemoglobin 30 pg (27-31); Mean Corpuscular Volume 87 fL (80-94); Mean Platelet Volume 8.2 fL (7.4-10.4); Nucleated Red Blood Cells % 0.1; Platelet Count 187 10^3/uL (150-450); Red Blood Count 4.35 10^6 /uL (4.18-5.48); Red Cell Distribution Width 13 % (10-15); White Blood Count 5.9 10^3/uL (3.5-10.8)
[2021-02-01 06:40] LABS: Calcium 8.9 mg/dL (8.6-10.3); EGFR African American 93.9 (>60); EGFR Non-African American 77.6 (>60); Potassium 4.1 mmol/L (3.5-5.0)
[2021-02-01] MEDS: Sodium Bicarb 650 mg (ANTACID) TAB PO SCH (08:37)
[2021-02-01] MEDS: Calcium/Vitamin D TAB 250/125 TAB PO SCH (08:38)
[2021-02-01] MEDS: Psyllium PAK PO SCH (08:38)
[2021-02-01 09:21] LABS: C Reactive Protein 59.93 mg/L (<8.01)
[2021-02-01 12:16] VITALS: BP 132/85
== END 2021-02-01 15:00 | disposition home or self-care (01) ==
LOC: ED 15:40 → MED 15:40
PROVIDERS: ADMIT Student in an Organized Health Care Education/Training Program; ATTEND Hospitalist

== ENCOUNTER 2022-07-02 10:49 | Inpatient (IN) ==
[2022-07-02 13:37] LABS: ABS Eosinophils 0.1 10^3/ul (0-0.6); ABS Lymphocytes 1.3 10^3/ul (1.0-4.8); ABS Monocytes 0.8 10^3/ul (0-0.8); ABS Neutrophils 6.2 10^3/ul (1.5-7.7); Eosinophil % 1.1 %; Hematocrit 38 % (42-52); Hemoglobin 12.6 g/dL (14.0-18.0); Lymphocyte % 15.5 %; Mean Corpuscular HGB Conc 33 g/dL (31-36); Mean Corpuscular Hemoglobin 29 pg (27-31); Mean Corpuscular Volume 87 fL (80-94); Mean Platelet Volume 7.7 fL (7.4-10.4); Nucleated Red Blood Cells % 0.1; Platelet Count 299 10^3/uL (150-450); Red Cell Distribution Width 13 % (10-15); White Blood Count 8.4 10^3/uL (3.5-10.8)
[2022-07-02 13:43] LABS: INR 1.05 (0.89-1.11)
[2022-07-02 14:32] LABS: ALT 15 U/L (7-52); AST 10 U/L (13-39); Albumin 4.1 g/dL (3.2-5.2); Albumin/Globulin Ratio 1.5 (1-3); Alkaline Phosphatase 72 U/L (35-149); Anion Gap 6 mmol/L (2-11); Blood Urea Nitrogen 28 mg/dL (6-24); C Reactive Protein 24.09 mg/L (<8.01); CO2 Carbon Dioxide 29 mmol/L (22-32); Calcium 9.8 mg/dL (8.6-10.3); Chloride 102 mmol/L (101-111); Globulin 2.7 g/dL (2-4); Glucose 105 mg/dL (70-100); Lipase < 10 U/L (11.0-82.0); Potassium 4.6 mmol/L (3.5-5.0); Sodium 137 mmol/L (135-145); Total Protein 6.8 g/dL (6.4-8.9); eGFR CKD-EPI 61.5 (>60)
[2022-07-02] MEDS ORDERED: Ondansetron 4 mg VIAL 2 MG/ML 2 ml VIAL IV PRN (19:22)
[2022-07-02] MEDS: NS 0.9% 1000 ml BAG 1,000 ML IV SCH (20:39)
[2022-07-02] MEDS: Enoxaparin 40 MG/0.4 ML SYR SUBCUT SCH ×2 (20:39→20:44)
[2022-07-02] MEDS ORDERED: Sodium Bicarb 650 mg (ANTACID) TAB PO ONE (21:30)
[2022-07-03 07:23] LABS: INR 1.1 (0.89-1.11)
[2022-07-03 07:35] LABS: Albumin 3.4 g/dL (3.2-5.2); CO2 Carbon Dioxide 18 mmol/L (22-32); Calcium 8.5 mg/dL (8.6-10.3); Chloride 111 mmol/L (101-111); Sodium 139 mmol/L (135-145)
[2022-07-03 07:41] LABS: ALT 14 U/L (7-52); Albumin/Globulin Ratio 1.4 (1-3); Alkaline Phosphatase 63 U/L (35-149); Blood Urea Nitrogen 26 mg/dL (6-24); Globulin 2.5 g/dL (2-4); Glucose 92 mg/dL (70-100); Total Protein 5.9 g/dL (6.4-8.9); eGFR CKD-EPI 57.5 (>60)
[2022-07-03 08:14] LABS: Anion Gap 10 mmol/L (2-11)
[2022-07-03] MEDS: NS 0.9% 1000 ml BAG 1,000 ML IV SCH (09:31)
[2022-07-03] MEDS: Sulfamethox/Trimethoprim DS TAB 800/160 mg PO SCH (09:31)
[2022-07-03] MEDS: Sodium Bicarb 650 mg (ANTACID) TAB PO SCH ×2 (09:31→21:23)
[2022-07-03 10:38] LABS: ABS Eosinophils 0.1 10^3/ul (0-0.6); ABS Monocytes 0.5 10^3/ul (0-0.8); ABS Neutrophils 4.2 10^3/ul (1.5-7.7); Eosinophil % 1.8 %; Hematocrit 37 % (42-52); Hemoglobin 12.2 g/dL (14.0-18.0); Lymphocyte % 17.1 %; Mean Corpuscular HGB Conc 33 g/dL (31-36); Mean Corpuscular Hemoglobin 29 pg (27-31); Mean Corpuscular Volume 87 fL (80-94); Platelet Count 271 10^3/uL (150-450); Red Blood Count 4.26 10^6 /uL (4.18-5.48); Red Cell Distribution Width 14 % (10-15); White Blood Count 5.8 10^3/uL (3.5-10.8)
[2022-07-03 11:18] LABS: Potassium Redraw 4.4 mmol/L (3.5-5.0)
[2022-07-03] MEDS: Enoxaparin 40 MG/0.4 ML SYR SUBCUT SCH (21:23)
[2022-07-04] MEDS: NS 0.9% 1000 ml BAG 1,000 ML IV SCH (00:28)
[2022-07-04 05:55] LABS: Hematocrit 34 % (42-52); Hemoglobin 10.9 g/dL (14.0-18.0); Mean Corpuscular HGB Conc 33 g/dL (31-36); Mean Corpuscular Hemoglobin 28 pg (27-31); Mean Corpuscular Volume 87 fL (80-94); Mean Platelet Volume 8.2 fL (7.4-10.4); Platelet Count 252 10^3/uL (150-450); Red Blood Count 3.86 10^6 /uL (4.18-5.48); Red Cell Distribution Width 13 % (10-15); White Blood Count 6.2 10^3/uL (3.5-10.8)
[2022-07-04 06:16] LABS: Calcium 8.1 mg/dL (8.6-10.3); Magnesium 1.9 mg/dL (1.9-2.7); Potassium 4.2 mmol/L (3.5-5.0); eGFR CKD-EPI 71.4 (>60)
[2022-07-04] MEDS: Sulfamethox/Trimethoprim DS TAB 800/160 mg PO SCH (09:00)
[2022-07-04] MEDS: Sodium Bicarb 650 mg (ANTACID) TAB PO SCH (09:00)
[2022-07-04 15:31] VITALS: BP 163/80
== END 2022-07-04 16:30 | disposition home or self-care (01) | DRG 389 ==
LOC: ED 10:49 → EDHOLD 10:49 → SUATTDRO 19:22 → SSU 23:17
PROVIDERS: ADMIT Internal Medicine; ATTEND Hospitalist

== ENCOUNTER 2023-07-28 05:49 | Observation (INO) ==
[~2023-07-28 05:49] MED LIST: Buffered Lidocaine 1% SYRIN 1 ml INTRADERM ONE; Lactated Ringers 1000 ml BAG 1,000 ML IV SCH
[2023-07-28 06:47] LABS: Rapid COVID-19 Molecular Undetected (Undetected)
[2023-07-28] MEDS ORDERED: Ondansetron 4 mg VIAL 2 MG/ML 2 ml VIAL ONE (06:49)
[2023-07-28] MEDS ORDERED: fentaNYL 100 mcg/2 ml 50 MCG/ML VIAL ONE (06:49)
[2023-07-28] MEDS ORDERED: Propofol 10 MG/ML 20 ML BTL ONE (06:49)
[2023-07-28] MEDS ORDERED: Rocuronium 50 mg VIAL 10 mg/ml 5 ml VIAL (50 mg) ONE ×2 (06:49→09:52)
[2023-07-28] MEDS ORDERED: Dexamethasone IV 4 MG/ML VIAL 1 ml VIAL ONE (06:49)
[2023-07-28] MEDS ORDERED: Lidocaine 2% PF 5 ML VIAL ONE (06:49)
[2023-07-28] MEDS ORDERED: Dexmedetomidine 200 mcg/2 ml 2 ml VIAL (200 mcg) ONE (06:57)
[2023-07-28] MEDS ORDERED: Midazolam 2 mg/2 ml VIAL 1 mg/ml 2 ml VIAL (2 mg) ONE (06:57)
[2023-07-28] MEDS ORDERED: ceFAZolin 2 GM in NS PREMIX 2 GM/100 ML BAG IVPB ONE (07:23)
[2023-07-28] MEDS ORDERED: Bupivacaine 0.5% 50 ML MDV VIAL ONE (07:27)
[2023-07-28] MEDS ORDERED: Vancomycin 1,000 MG VIAL ONE (07:47)
[2023-07-28] MEDS ORDERED: Sterile Water for Inj 10 ML ONE (08:30)
[2023-07-28] MEDS ORDERED: Phenylephrine IV 10 MG/ML 1 ml VIAL ONE (08:49)
[2023-07-28] MEDS ORDERED: Naloxone 0.4 mg VIAL 0.4 mg/ml 1 ml VIAL IV PRN (09:37)
[2023-07-28] MEDS ORDERED: HYDROmorphone 1 MG/1 ML SYRINGE IV PRN (09:37)
[2023-07-28] MEDS ORDERED: fentaNYL 100 mcg/2 ml 50 MCG/ML VIAL IV PRN (09:37)
[2023-07-28] MEDS ORDERED: Ondansetron 4 mg VIAL 2 MG/ML 2 ml VIAL IV PRN ×2 (09:37→12:07)
[2023-07-28] MEDS ORDERED: Ondansetron ODT 4 mg TAB 4 MG TAB PO PRN (12:07)
[2023-07-28] MEDS ORDERED: Magnesium Hydroxide LIQ 30 ML UDC PO PRN (12:07)
[2023-07-28] MEDS ORDERED: Lactulose 30 ml UDC PO PRN (12:07)
[2023-07-28] MEDS ORDERED: Morphine 2 MG/ML SYRINGE IV PRN (12:07)
[2023-07-28] MEDS: Lactated Ringers 1000 ml BAG 1,000 ML IV SCH (15:59)
[2023-07-28] MEDS: ceFAZolin 1 GM ADVAN 1 GM in NS 0.9% 50 ML 50 ML IVPB SCH (16:58)
[2023-07-28] MEDS: Magnesium Hydroxide LIQ 30 ML UDC PO SCH ×2 (21:52→21:55)
[2023-07-28] MEDS: Sodium Bicarb 650 mg (ANTACID) TAB PO SCH (21:53)
[2023-07-29] MEDS: ceFAZolin 1 GM ADVAN 1 GM in NS 0.9% 50 ML 50 ML IVPB SCH ×2 (00:29→09:57)
[2023-07-29] MEDS: Lactated Ringers 1000 ml BAG 1,000 ML IV SCH (03:17)
[2023-07-29 06:14] LABS: Hematocrit 28.4 % (38-53); Hemoglobin 9.7 g/dL (13.2-16.3); Mean Platelet Volume 7.9 fL (7.5-11.2); Platelet Count 190 10^3/uL (150-450)
[2023-07-29 06:32] LABS: Calcium 8.2 mg/dL (8.6-10.3); Creatinine, Serum 1.18 mg/dL (0.67-1.17); Potassium 4.1 mmol/L (3.5-5.0); eGFR CKD-EPI 62.4 (>60)
[2023-07-29] MEDS: Vitamin THERAPEUTIC TAB PO SCH (09:25)
[2023-07-29] MEDS: Sodium Bicarb 650 mg (ANTACID) TAB PO SCH ×2 (09:26→21:25)
[2023-07-29] MEDS: Sulfamethox/Trimethoprim DS TAB 800/160 mg PO SCH (09:27)
[2023-07-29] MEDS: Magnesium Hydroxide LIQ 30 ML UDC PO SCH ×2 (09:27→21:25)
[2023-07-30 07:04] LABS: Hematocrit 31.5 % (38-53); Hemoglobin 10.5 g/dL (13.2-16.3); Mean Platelet Volume 8.3 fL (7.5-11.2); Platelet Count 222 10^3/uL (150-450)
[2023-07-30] MEDS: Vitamin THERAPEUTIC TAB PO SCH (08:50)
[2023-07-30] MEDS: Magnesium Hydroxide LIQ 30 ML UDC PO SCH ×2 (08:51→08:53)
[2023-07-30] MEDS: Sodium Bicarb 650 mg (ANTACID) TAB PO SCH (08:51)
[2023-07-30] MEDS: Sulfamethox/Trimethoprim DS TAB 800/160 mg PO SCH (08:51)
[2023-07-30 10:15] VITALS: BP 137/75
== END 2023-07-30 13:10 | disposition home or self-care (01) ==
LOC: SSU 05:49 → OR 05:49
PROVIDERS: ADMIT Orthopaedic Surgery; ATTEND Orthopaedic Surgery

== ENCOUNTER 2023-12-04 11:42 | Observation (INO) ==
[2023-12-04 12:19] LABS: ABS Eosinophils 0.1 10^3/uL (0.0-0.5); ABS Lymphocytes 1.1 10^3/uL (1.0-4.8); ABS Monocytes 0.7 10^3/uL (0.0-1.1); ABS Neutrophils 5.4 10^3/uL (1.5-7.6); ABS Nucleated RBC 0.01 10^3/ul; Eosinophil % 1.1 %; Hematocrit 38.6 % (38-53); Mean Corpuscular Hemoglobin 29.2 pg (27-33); Mean Corpuscular Hgb Conc 33.7 g/dL (31-36); Mean Corpuscular Volume 86.8 fL (80-97); Nucleated Red Blood Cells % 0.1 %/100WBC (0.0-0.8); Platelet Count 244 10^3/uL (150-450); Red Blood Count 4.45 10^6/uL (4.06-5.63); Red Cell Distribution Width 14.2 % (12-17); White Blood Count 7.3 10^3/uL (3.6-10.2)
[2023-12-04 12:31] LABS: INR 1.05 (0.83-1.13)
[2023-12-04 12:58] LABS: Albumin 4.4 g/dL (3.2-5.2); Albumin/Globulin Ratio 1.6 (1-3); Calcium 9.6 mg/dL (8.6-10.3); Creatinine, Serum 1.26 mg/dL (0.67-1.17); Globulin 2.7 g/dL (2-4); Potassium 4.6 mmol/L (3.5-5.0); Total Bilirubin 0.7 mg/dL (0.2-1.0); Total Protein 7.1 g/dL (6.4-8.9); eGFR CKD-EPI 57.7 (>60)
[2023-12-04] MEDS ORDERED: ceFAZolin 2 GM in NS PREMIX 2 GM/100 ML BAG IVPB ONE (13:46)
[2023-12-04 13:54] LABS: HDL Cholesterol 50.8 mg/dL
[2023-12-04 13:56] LABS: High Sensitivity Troponin 1 Hr 3 pg/mL (<20)
[2023-12-04 14:08] LABS: TSH Ultra Thyroid Stim Horm 2.56 mcIU/mL (0.34-5.60)
[2023-12-04] MEDS ORDERED: Lidocaine 1% VIAL 10 MG/ML 30 ML VIAL ONE (15:57)
[2023-12-04] MEDS ORDERED: fentaNYL 100 mcg/2 ml 50 MCG/ML VIAL ONE (16:00)
[2023-12-04] MEDS ORDERED: Midazolam 5 mg/5 ml VIAL 1 mg/ml 5 ml VIAL (5 mg) ONE (16:00)
[2023-12-04] MEDS: ceFAZolin 2 GM/50 ML BAG IV ONE (16:25)
[2023-12-04] MEDS: Midazolam 10 mg/10 ml VIAL 1 mg/ml 10 ml VIAL (10 mg) IV SLOW PU ONE (16:55)
[2023-12-04] MEDS: fentaNYL 100 mcg/2 ml 50 MCG/ML VIAL IV SLOW PU ONE (16:55)
[2023-12-04] MEDS: NS 0.9% 1000 ml BAG 1,000 ML IV SCH (16:56)
[2023-12-04] MEDS: ceFAZolin SYR FLUSH 1 GM/10 ML for pocket flush (cardiology) FLUSH ONE (16:56)
[2023-12-04] MEDS ORDERED: ceFAZolin VIAL 1 GM in NS 0.9% 50 ML 50 ML IVPB SCH (18:00)
[2023-12-05] MEDS: ceFAZolin 1 GM in Dextrose 1 GM/50 ML BAG IVPB SCH (00:01)
[2023-12-05] MEDS: Sodium Bicarb 650 mg (ANTACID) TAB PO SCH (00:16)
[2023-12-05 06:07] LABS: ABS Eosinophils 0.1 10^3/uL (0.0-0.5); ABS Lymphocytes 1.1 10^3/uL (1.0-4.8); ABS Monocytes 0.9 10^3/uL (0.0-1.1); ABS Neutrophils 5.8 10^3/uL (1.5-7.6); ABS Nucleated RBC 0.01 10^3/ul; Eosinophil % 1.8 %; Hematocrit 33.6 % (38-53); Hemoglobin 11.3 g/dL (13.2-16.3); Mean Corpuscular Hemoglobin 28.9 pg (27-33); Mean Corpuscular Hgb Conc 33.5 g/dL (31-36); Mean Corpuscular Volume 86.3 fL (80-97); Nucleated Red Blood Cells % 0.1 %/100WBC (0.0-0.8); Platelet Count 206 10^3/uL (150-450); Red Blood Count 3.89 10^6/uL (4.06-5.63); White Blood Count 7.9 10^3/uL (3.6-10.2)
[2023-12-05 06:44] LABS: Calcium 8.6 mg/dL (8.6-10.3); Creatinine, Serum 1.1 mg/dL (0.67-1.17); Magnesium 1.9 mg/dL (1.9-2.7); Potassium 4.5 mmol/L (3.5-5.0); eGFR CKD-EPI 67.9 (>60)
[2023-12-05 10:11] VITALS: BP 129/75
== END 2023-12-05 14:05 | disposition home or self-care (01) ==
LOC: EDHOLD 11:42 → ED 11:42 → AA 15:33 → MEDTELE 17:25
PROVIDERS: ADMIT Hospitalist; ATTEND Hospitalist